=== PATIENT | male | born 1965 | race Caucasian/White ===

== ENCOUNTER 2017-08-20 01:47 | Emergency (ER) | payer OTHER ==
[2017-08-20] MEDS: HYDROmorphONE 1 MG/ML SYG IM (04:35)
[2017-08-20 06:18] LABS: URINE BLOOD (Dip) POC 3+ (NEGATIVE); URINE GLUCOSE (Dip) POC Negative (NEGATIVE); URINE KETONES (Dip) POC 2+ (NEGATIVE); URINE LEUKOCYTE EST (Dip) POC Negative (NEGATIVE); URINE NITRITE (Dip) POC Negative (NEGATIVE); URINE TOTAL PROTEIN POC 1+ (NEGATIVE)
[2017-08-20 06:18] LABS: URINE PH (Dip) POC 6.5 (5.0-8.5)
== END 2017-08-20 07:13 | disposition home or self-care (01) ==
LOC: E/R 01:47
DX: M54.5 Low back pain (principal); Z79.82 Long term (current) use of aspirin
CPT/HCPCS: 72131; 81003; 96372; 99285-25

== ENCOUNTER → 2017-12-16 | Outpatient (CLI) | payer OTHER | END | disposition home or self-care (01) | LOC: EEG 10:45 | DX: R56.9 Unspecified convulsions (principal) | CPT/HCPCS: 95819 ==